=== PATIENT | female | born 1955 | race Two or more races ===

== ENCOUNTER 2023-05-25 09:21 | Emergency (ER) | payer OTHER ==
[~2023-05-25] VITALS: Ht 154.9 cm; Wt 68.0 kg
[~2023-05-25 09:21] MED LIST: CIPRO500 MG PO; CRESTOR20 MG PO; FLAGYL500MG PO; INTESTINEX680 M1 PO; KETO10TA2 PO; LISINOPRIL10 MG PO; PEPCID AC20 MG PO; SYNTHROID50 MCG PO
[2023-05-25 10:18] LABS: HEMATOCRIT 42.7 % (36.0-45.00); HEMOGLOBIN 14.5 g/dL (12.0-15.00); MEAN CELL VOLUME 84.8 fL (80.00-100.00); MEAN CORPUSCULAR HEMOGLOBIN 28.7 pg (27.00-32.0); MEAN CORPUSCULAR HGB CONC 33.8 g/dl (32.0-36.0); PLATELET COUNT 240 K/uL (150-450); RED BLOOD COUNT 5.03 M/uL (4.00-6.00); RED CELL DISTRIBUTION WIDTH 13.9 % (11.5-14.5)
== END 2023-05-25 11:43 | disposition home or self-care (01) ==
LOC: ER 09:22
PROVIDERS: General Practice
DX: J10.1 Influenza due to other identified influenza virus with other respiratory manifestations (principal); R05.9 Cough, unspecified; Z20.822 Contact with and (suspected) exposure to COVID-19

== ENCOUNTER 2024-04-18 13:31 | Emergency (ER) | payer OTHER ==
[~2024-04-18] VITALS: Ht 154.9 cm; Wt 69.9 kg
[2024-04-18] MEDS ORDERED: FAMOTIDINE/PF 20 MG/2 ML VIAL IV ONE (14:45)
[2024-04-18 15:10] LABS: HEMOGLOBIN 14.3 g/dL (12.0-15.00); MEAN CELL VOLUME 85.4 fL (80.00-100.00); MEAN CORPUSCULAR HEMOGLOBIN 29.1 pg (27.00-32.0); PLATELET COUNT 274 K/uL (150-450); RED BLOOD COUNT 4.92 M/uL (4.00-6.00); RED CELL DISTRIBUTION WIDTH 14.4 % (11.5-14.5)
[2024-04-18 15:26] LABS: PH,URINE 5.5 (5.0-8.0); URINE APPEARANCE Cloudy; URINE BILIRRUBIN Negative (NEGATIVE); URINE BLOOD Small; URINE COLOR Yellow; URINE GLUCOSE Negative (NEGATIVE); URINE KETONE 15 (NEGATIVE); URINE LEUKOCYTE Small; URINE NITRATE Positive; URINE PROTEIN Negative (NEGATIVE); URINE UROBILINOGEN 0.2 E.U./dl
[2024-04-18 15:31] LABS: URINE EPITHELIAL CELLS 8.1 uL (0.0-38.8); URINE RBC 5.3 uL (0.0-20.8); URINE WBC 197.2 uL (0.0-23.2)
[2024-04-18 15:36] LABS: URINE BACTERIA > 9821.5 uL (0.0-1933); URINE CAST 0.15 uL (0.0-1.40)
[2024-04-18 15:45] LABS: ALBUMIN 4.1 gm/dL (3.4-5.0); BILIRUBIN TOTAL 0.62 mg/dL (0.3-1.2); CALCIUM 9.6 mg/dL (8.5-10.1); CREATININE SERUM 0.76 mg/dL (0.55-1.02); GFR 75.91; GLOBULINA 2.8 G/DL (2.4-3.5); POTASSIUM 4.29 mEq/L (3.5-5.1); TOTAL PROTEIN 6.9 gm/dL (6.4-8.2)
[2024-04-18] MEDS ORDERED: PIPERACILLIN/TAZOBACTAM SODIUM 3.375 GM VIAL IV ONE (17:15)
== END 2024-04-18 19:05 | disposition home or self-care (01) ==
LOC: ER 13:33
PROVIDERS: General Practice
DX: J45.909 Unspecified asthma, uncomplicated (principal); R10.2 Pelvic and perineal pain; K57.92 Diverticulitis of intestine, part unspecified, without perforation or abscess without bleeding; I10 Essential (primary) hypertension
CPT/HCPCS: 36415; 74176; 96365; 99284; J2543; J3490